=== PATIENT | female | born 1985 | race Caucasian/White ===

== ENCOUNTER 2016-07-07 15:15 | Emergency (ER) | payer OTHER ==
[~2016-07-07] VITALS: Ht 167.6 cm; Wt 74.0 kg
[~2016-07-07 15:15] MED LIST: CIPRO250 MG PO; CIPRO500 MG PO; CLOMIPHENE CITR50 MG PO; DIAZEPAM5 MG PO; ELAVIL25 MG PO; FLEXERIL10 MG PO; HYCODAN SYRUP480 ML PO; IBUPROFEN800 MG PO; LAMOTRIGINE200 MG PO; MACROBID100 MG PO; MOTRIN600 MG PO; MOTRIN800 MG PO; NAPROSYN500 MG PO; NAPROXEN500 MG PO; PERCOCET 5/31 TABLET PO; PROMETHAZINE HC25 M1 PO; PYRIDIUM100 MG PO; TOPIRAMATE100 MG PO; TOPIRAMATE25 MG PO; TUSSIONEX PENN473 ML PO; TYLENOL EXTRA500 MG PO; VALIUM5 MG PO; ZOFRAN ODT4 MG PO
[2016-07-07 15:23] VITALS: BP 113/90
[2016-07-07 15:59] LABS: HEMATOCRIT 41.6 % (36.0-46.0); MCH 29.7 PG (29.0-34.0); MCHC 32.9 G/DL (30.0-36.0); MEAN PLAT.VOLUME 10.2 uM^3 (9.5-12.4); PLATELET COUNT 281 K/uL (156-360); RBC DIS.WIDTH-CV 13.4 % (11.8-14.6); RBC DIS.WIDTH-SD 43.1 % (39-53); RED BLOOD COUNT 4.62 M/uL (3.80-5.20); WHITE BLOOD COUNT 8.6 K/uL (4.1-10.2)
[2016-07-07 16:12] LABS: CHLORIDE 111 mEq/L (99-109); POTASSIUM 3.8 mEq/L (3.7-5.4); SODIUM 140 mEq/L (136-147)
[2016-07-07 16:14] LABS: GLUCOSE 101 mg/dL (70-99)
[2016-07-07 16:15] LABS: ANION GAP 9 MEQ/L (2-14)
[2016-07-07 16:17] LABS: GFR ESTIMATE (CALCULATED) > 59 mL/min/
[2016-07-07 16:18] LABS: UREA NITROGEN (BUN) 9 mg/dL (9-23)
[2016-07-07] MEDS ORDERED: ROBITUSSIN AC,T10 ML PO (17:49)
[2016-07-07] MEDS ORDERED: PREDNISONE10 M1 PO (17:49)
[2016-07-07] MEDS ORDERED: PULMICORT FLE180 MCG IH (17:49)
[2016-07-07] MEDS ORDERED: TUSSIONEX PENN473 ML PO (18:20)
== END 2016-07-07 18:46 | disposition home or self-care (01) ==
LOC: RME 15:15 → EME 15:15 → RME 18:46
DX: J20.9 Acute bronchitis, unspecified (principal); Z88.6 Allergy status to analgesic agent; Z88.1 Allergy status to other antibiotic agents
CPT/HCPCS: 71020; 80048; 85027; 94640; 94640 76; 99281; 99284

== ENCOUNTER 2016-08-06 15:43 | Emergency (ER) | payer OTHER ==
[~2016-08-06] VITALS: Ht 167.6 cm; Wt 72.0 kg
[~2016-08-06 15:43] MED LIST changes: +PREDNISONE10 M1 PO; +PULMICORT FLE180 MCG IH; +ROBITUSSIN AC,T10 ML PO
[2016-08-06 15:52] VITALS: BP 107/90
[2016-08-06 16:55] LABS: ADD MIUA? YES; BILIRUBIN NEGATIVE; BLOOD LARGE; GLUCOSE (STRIP) NEGATIVE; KETONES NEGATIVE; LEUKOCYTES SMALL; NITRITE NEGATIVE; PROTEIN (STRIP) 30; SPECIFIC GRAVITY 1.024 (1.000-1.030)
[2016-08-06 16:56] LABS: COLOR RED ((YELLOW))
[2016-08-06 17:42] LABS: RED BLOOD CELLS TNTC /HPF (0-5)
[2016-08-06 17:43] LABS: BACTERIA RARE /HPF; CASTS NONE SEEN /LPF; CRYSTALS NONE SEEN; EPITHELIAL CELLS 1+ /HPF; MUCUS NONE SEEN /LPF; UCUL ADDED? NO
== END 2016-08-06 18:02 | disposition home or self-care (01) ==
LOC: EME 15:43 → RME 15:43
PROVIDERS: Nurse Practitioner Family
DX: M54.5 Low back pain (principal)
CPT/HCPCS: 72100; 81003; 99281; 99284

== ENCOUNTER 2016-08-17 09:39 | Emergency (ER) | payer OTHER ==
[~2016-08-17] VITALS: Ht 167.6 cm; Wt 72.1 kg
[2016-08-17 09:40] VITALS: BP 129/95
[2016-08-17] MEDS ORDERED: PERCOCET 5/31 TABLET PO (10:35)
== END 2016-08-17 10:52 | disposition home or self-care (01) ==
LOC: EME 09:39
DX: S67.21XA Crushing injury of right hand, initial encounter (principal); W20.8XXA Other cause of strike by thrown, projected or falling object, initial encounter
CPT/HCPCS: 73130

== ENCOUNTER 2017-02-25 05:08 | Emergency (ER) | payer SELFPAY ==
[~2017-02-25] VITALS: Ht 167.6 cm; Wt 75.9 kg
[2017-02-25] MEDS ORDERED: AUGMENTIN875 MG PO (05:29)
[2017-02-25] MEDS ORDERED: PERCOCET 5/31 TABLET PO (05:29)
[2017-02-25 05:38] VITALS: BP 136/88
== END 2017-02-25 05:40 | disposition home or self-care (01) ==
LOC: EME 05:08
DX: M26.622 Arthralgia of left temporomandibular joint (principal); J01.90 Acute sinusitis, unspecified
CPT/HCPCS: 99281; 99284

== ENCOUNTER 2017-03-05 13:28 | Emergency (ER) | payer SELFPAY ==
[~2017-03-05] VITALS: Ht 167.6 cm; Wt 72.7 kg
[~2017-03-05 13:28] MED LIST changes: +AUGMENTIN875 MG PO
[2017-03-05 13:43] VITALS: BP 124/81
[2017-03-05] MEDS ORDERED: NORCO 5/3251 TABLET PO (15:28)
[2017-03-05] MEDS ORDERED: MOTRIN800 MG PO (15:28)
== END 2017-03-05 15:56 | disposition home or self-care (01) ==
LOC: EME 13:28
DX: S97.82XA Crushing injury of left foot, initial encounter (principal); S90.812A Abrasion, left foot, initial encounter; W20.8XXA Other cause of strike by thrown, projected or falling object, initial encounter; G40.909 Epilepsy, unspecified, not intractable, without status epilepticus
CPT/HCPCS: 73630; 99281; 99283

== ENCOUNTER 2017-03-10 19:43 | Emergency (ER) | payer SELFPAY ==
[~2017-03-10] VITALS: Ht 167.6 cm; Wt 79.1 kg
[~2017-03-10 19:43] MED LIST changes: +NORCO 5/3251 TABLET PO
[2017-03-10] MEDS ORDERED: NORCO 5/3251 TABLET PO (21:25)
[2017-03-10 21:44] VITALS: BP 137/88
== END 2017-03-10 22:04 | disposition home or self-care (01) ==
LOC: EME 19:43
PROC: 2W3EX1Z Immobilization of Right Hand using Splint (ICD-10-PCS; principal; 2017-03-10)
DX: S63.91XA Sprain of unspecified part of right wrist and hand, initial encounter (principal); W01.0XXA Fall on same level from slipping, tripping and stumbling without subsequent striking against object, initial encounter; Y93.K1 Activity, walking an animal; Z88.6 Allergy status to analgesic agent
CPT/HCPCS: 73130; 99281; 99284